=== PATIENT | male | born 1975 | race Caucasian/White ===

== ENCOUNTER → 2017-05-25 09:48 | Emergency (ER) | payer BC ==
[2017-05-25 11:16] VITALS: BP 130/68
--- NOTE | 2017-05-25 12:06 | ED ---
Lower Extremity - HPI Summary HPI Summary: Patient presents to the ED with left calf pain after straining the muscle last night during a kickball game. After kicking the ball, he felt a muscle pain in the calf which has been sharp, achy and constant since last night around 9pm. Rest makes the pain better, walking makes it worse. He is ambulating, but with pain and must keep his leg straight. Worsening pain when he dorsiflex's but no pain with plantarflexion. Denies taking any medications or other measures for improving symptoms. He denies any other symptoms. - History of Current Complaint Chief Complaint: EDExtremityLower Stated Complaint: RT LEG PAIN Time Seen by Provider: 05/25/17 09:53 Hx Obtained From: Patient Mechanism Of Injury: Twisted Onset of Pain: Immediate Onset/Duration: Hours Severity Initially: Moderate Severity Currently: Moderate Pain Intensity: 2 Pain Scale Used: 0-10 Numeric Timing: Constant Location: Is Discrete @ - right calf Associated Signs And Symptoms: Positive: Negative Aggravating Factor(s): Standing, Ambulation, Weight Bearing Alleviating Factor(s): Rest Able to Bear Weight: Yes - Risk Factors Gout Risk Factors: Negative DVT Risk Factors: Negative Septic Arthritis Risk Factor: Negative PMH/Surg Hx/FS Hx/Imm Hx Previously Healthy: Yes History: Reports: Hx Kidney Stones Infectious Disease History: Denies: Traveled Outside the [place] in Last 30 Days - Social History Occupation: Employed Full-time Lives: With Family Alcohol Use: Occasionally Hx Substance Use: No Substance Use Type: Reports: None Hx Tobacco Use: No Smoking Status (MU): Never Smoked Tobacco Review of Systems Constitutional: Negative Eyes: Negative Cardiovascular: Negative Respiratory: Negative Positive: Myalgia Skin: Negative Neurological: Negative Psychological: Normal All Other Systems Reviewed And Are Negative: Yes Physical Exam Triage Information Reviewed: Yes Vital Signs On Initial Exam: Initial Vitals Temp Pulse Resp BP Pulse Ox 97.4 F 74 20 156/109 98 05/25/17 09:50 05/25/17 09:50 05/25/17 09:50 05/25/17 09:50 05/25/17 09:50 Vital Signs Reviewed: Yes Appearance: Positive: Well-Appearing, Well-Nourished Skin: Positive: Warm, Skin Color Reflects Adequate Perfusion Head/Face: Positive: Normal Head/Face Inspection Eyes: Positive: EOMI, JUAN MANUEL, Conjunctiva Clear Neck: Positive: Supple, No Lymphadenopathy Respiratory/Lung Sounds: Positive: Clear to Auscultation, Breath Sounds Present Cardiovascular: Positive: Normal, RRR, Pulses are Symmetrical in both Upper and Lower Extremities Musculoskeletal: Positive: Pain @ - right calf with pain on palpation Neurological: Positive: Sensory/Motor Intact, Alert, Oriented to Person Place, Time, Speech Normal Psychiatric: Positive: Normal AVPU Assessment: Alert Diagnostics - Vital Signs Vital Signs Temp Pulse Resp BP Pulse Ox 05/25/17 11:13 97.3 F 68 15 130/68 05/25/17 09:50 97.4 F 74 20 156/109 98 - Laboratory Lab Statement: Any lab studies that have been ordered have been reviewed, and results considered in the medical decision making process. Lower Extremity Course/Dx - Course Course Of Treatment: No US or XRAY necessary. Clinical diagnoses were made based on the findings in the physical exam above. Negative Weber, Negative Matles test and with no noticeable defect proximal to the insertion of the tendon. No bruising or crepitus. Patient able to bear weight. Achilles tendonitis or achilles rupture not likely based on physical exam tests. Pain on palpation over the right calf with tenderness and slight swelling. Likely muscle sprain of the gastrocnemius/soleus based on mechanism of injury. Unlikely DVT from history and initiation of pain immediately after a kick involving the muscle. Will treat for muscle sprain with muscle relaxers, 2 days pain management, moist heat, ibuprofen and rest. Note given for work. Patient is instructed to return if he develops worsening symptoms, color or temperature changes in the leg or foot or develops any shortness of breath. Patient agrees and is OK for discharge. - Diagnoses Differential Diagnosis/HQI/PQRI: Positive: Compartment Syndrome, Contusion, Sprain, Strain Provider Diagnoses: Strain of calf muscle Discharge - Discharge Plan Condition: Stable Disposition: HOME Prescriptions: Cyclobenzaprine TAB* [Flexeril TAB*] 10 mg PO BID PRN #10 tab PRN Reason: Pain Hydrocodone/Acetamin 10/325(NF [[place] 10/325 (NF)] 1 tab PO Q6H #20 tab MDD 4 Patient Education Materials: Muscle Strain (ED) Forms: *Work Release Referrals: Venkatesh SANDERS,Fabián Varela [Primary Care Provider] - Additional Instructions: Moist heat to the area several times per day Rest the leg as much as possible Flexiril and pain medication as prescribed Ibuprofen 600mg three times daily on opposite schedule of pain medication
== END | disposition home or self-care (01) ==
LOC: ED 09:48
DX: S86.912A Strain of unspecified muscle(s) and tendon(s) at lower leg level, left leg, initial encounter (principal); M79.662 Pain in left lower leg; X50.9XXA Other and unspecified overexertion or strenuous movements or postures, initial encounter; Y93.79 Activity, other specified sports and athletics; Y92.89 Other specified places as the place of occurrence of the external cause
CPT/HCPCS: 99281